=== PATIENT | female | born 1985 | race Caucasian/White ===

== ENCOUNTER 2023-03-09 07:02 | Day surgery (SDC) | payer OTHER ==
[2023-03-07 17:15] VITALS: BMI 31.1
[2023-03-07 17:42] LABS: Hematocrit 38.1 % (34.9-44.5); Hemoglobin 12.7 g/dL (12.0-15.5); Mean Corpuscular HGB CONC 33.3 g/dL (32.0-36.0); Mean Corpuscular Hemoglobin 30.6 pg (27.0-33.0); Mean Corpuscular Volume 91.8 fl (81.6-98.3); Platelet Count 233 10x3/uL (150-450); RBC Distribution Width 12.2 % (11.5-14.5); Red Blood Cell (RBC) Count 4.15 10x6/uL (3.90-5.03)
[2023-03-07 18:00] LABS: BHCG - Serum Negative (NEGATIVE); Pregs Control Background? CLEAR/WHITE (CLR/WHITE); Pregs Control Bar Appear? YES (CONTROL BAR)
[2023-03-09] MEDS ORDERED: CeleCOXIB 100 MG CAP ONE (07:48)
[2023-03-09] MEDS ORDERED: Famotidine/PF 20 mg/2ml Vial ONE (07:48)
[2023-03-09] MEDS ORDERED: Gabapentin 300 MG CAP ONE (07:48)
[2023-03-09] MEDS ORDERED: Bupivacaine PF 0.5% 30 ML VIAL ONE (08:52)
[2023-03-09] MEDS ORDERED: EPINEPHrine 1 MG/ML AMP ONE (08:52)
[2023-03-09] MEDS ORDERED: Fentanyl 250 MCG/5 ML VIAL ONE (09:10)
[2023-03-09] MEDS ORDERED: Ketorolac Tromethamine 30 MG/ML VIAL ONE (09:10)
[2023-03-09] MEDS ORDERED: metroNIDAZOLE 500 MG/100 ML BAG ONE (09:10)
[2023-03-09] MEDS ORDERED: Midazolam HCl 2 mg/2 ml Vial ONE (09:10)
[2023-03-09] MEDS ORDERED: PROPOFOL 20 ML ONE (09:10)
[2023-03-09] MEDS ORDERED: Glycopyrrolate 0.2 MG/ML 5 ML SYRINGE ONE (09:10)
[2023-03-09] MEDS ORDERED: CEFAZOLIN 2 GM VIAL ONE (09:10)
[2023-03-09] MEDS ORDERED: Ondansetron PF 4 MG/2 ML Vial ONE ×2 (09:10→12:28)
[2023-03-09] MEDS ORDERED: Dexamethasone 20 MG/5 ML VIAL ONE (09:10)
[2023-03-09] MEDS ORDERED: fentaNYL 50 mcg/mL 1 mL Vial ONE (11:31)
[2023-03-09] MEDS ORDERED: oxyCODONE 5 MG TAB ONE (13:29)
[2023-03-09] MEDS ORDERED: Metoclopramide HCl 10 MG/2 ML VIAL ONE (14:14)
== END 2023-03-09 15:05 | disposition home or self-care (01) ==
LOC: CSHSDC 07:02
PROVIDERS: ATTEND Obstetrics & Gynecology
PROC: 0UT94ZZ Resection of Uterus, Percutaneous Endoscopic Approach (ICD-10-PCS; principal; 2023-03-09)
PROC: 0UB74ZZ Excision of Bilateral Fallopian Tubes, Percutaneous Endoscopic Approach (ICD-10-PCS; principal; 2023-03-09)
DX: N94.89 Other specified conditions associated with female genital organs and menstrual cycle (principal); R10.2 Pelvic and perineal pain; G89.29 Other chronic pain; K21.9 Gastro-esophageal reflux disease without esophagitis; Z79.899 Other long term (current) drug therapy; Z88.6 Allergy status to analgesic agent
CPT/HCPCS: 84703; 85027; 86850; 86900; 86901; 88307; C9250; J0171; J1100; J1885; J2250; J2405; J2704; J2765; J3010; S0020; S0028

== ENCOUNTER 2023-03-16 14:21 | Observation (INO) | payer OTHER ==
[~2023-03-16 14:21] MED LIST: Iopamidol 300 61% 100 ML VIAL FS ONE
[2023-03-16 14:34] VITALS: BMI 33.0
[2023-03-16] MEDS ORDERED: HYDROcodone/Acetaminophen 5/325 mg Tablet PO PRN ×4 (14:35→14:37)
[2023-03-16] MEDS ORDERED: Bisacodyl 5 MG TAB PO PRN (14:35)
[2023-03-16] MEDS ORDERED: Ondansetron ODT 4 MG TAB PO PRN (14:35)
[2023-03-16] MEDS ORDERED: Zolpidem Tartrate 5 MG TAB PO PRN ×2 (14:35→14:37)
[2023-03-16] MEDS ORDERED: Piperacillin/Tazobactam 3.375 GM in Sodium Chloride 0.9% 100 ML IVPB SCH ×2 (14:45→18:00)
[2023-03-16] MEDS: Meperidine HCl/PF 25 MG/ML VIAL SLOW IVP PRN ×2 (15:26→19:02)
[2023-03-16 15:31] LABS: #Eosinphils 0.1 10x3/uL (0.0-0.5); #Monocytes 0.5 10x3/uL (0.0-1.1); #Neutrophils 6.4 10x3/uL (1.5-8.4); %Basophils 0.2 % (0.0-2.0); %Eosinophils 0.6 % (0.0-6.0); %Lymphocytes 17.5 % (18.0-47.0); %Monocytes 5.4 % (0.0-10.0); %Neutrophils 75.9 % (40.0-75.0); Hematocrit 44.2 % (34.9-44.5); Hemoglobin 15.2 g/dL (12.0-15.5); Mean Corpuscular HGB CONC 34.4 g/dL (32.0-36.0); Mean Corpuscular Hemoglobin 30.7 pg (27.0-33.0); Mean Corpuscular Volume 89.3 fl (81.6-98.3); Mean Platelet Volume 9.6 fl (7.4-10.4); Platelet Count 214 10x3/uL (150-450); RBC Distribution Width 12.1 % (11.5-14.5); Red Blood Cell (RBC) Count 4.95 10x6/uL (3.90-5.03); White Blood Cell (WBC) Count 8.5 10x3/uL (3.5-10.5)
[2023-03-16] MEDS: Sodium Chloride 0.9% 1,000 ML IV SCH (15:35)
[2023-03-16 15:53] LABS: Bilirubin Neg (Negative); Blood, Urine Negative (Negative); Clarity Clear (Clear); Glucose, Urine (Dipstick) Normal (Negative); Ketone, Urine 15 mg/dL (Negative); Leukocyte Negative (Negative); Nitrite Negative (Negative); Protein, Urine (Dipstick) Negative (Neg-Trace); Urobilinogen Normal mg/dL (Less than 2)
[2023-03-16] MEDS: Ondansetron PF 4 MG/2 ML Vial IVP PRN (15:55)
[2023-03-16 16:49] LABS: ALT (SGPT) 20 U/L (8-55); AST (SGOT) 40 U/L (5-34); Albumin 4.9 g/dL (3.5-5.0); Alkaline Phosphatase 86 U/L (40-110); Anion Gap 18 mmol/L (10-20); BUN (Urea Nitrogen) 11 mg/dL (7.0-18.7); Bilirubin, Total 0.7 mg/dL (0.2-1.2); Calc. Creatinine Clearance 135 mL/min (70-130); Calcium 9.4 mg/dL (7.8-10.44); Carbon Dioxide 21 mmol/L (22-29); Chloride 100 mmol/L (98-107); Estimated GFR 110; Globulin 3.9 g/dL (2.4-3.5); Glucose 82 mg/dL (70-105); Potassium 5.2 mmol/L (3.5-5.1); Protein, Total 8.8 g/dL (6.0-8.3); Sodium 134 mmol/L (136-145)
[2023-03-16 17:08] LABS: RBC/HPF 0-3 HPF (0-3); WBC/HPF 0-3 HPF (0-3)
[2023-03-16 17:09] LABS: Bacteria/HPF 1+ HPF (None Seen); Mucous/LPF 1+ LPF (<2+)
[2023-03-16] MEDS: Piperacillin/Tazobactam 3.375 GM in Sodium Chloride 0.9% 100 ML IVPB SCH (19:02)
[2023-03-16] MEDS ORDERED: traMADol HCl 50 MG TAB PO PRN ×2 (19:31→19:32)
[2023-03-16] MEDS ORDERED: Promethazine HCl 25 MG in Sodium Chloride 0.9% 50 ML IVPB PRN (19:36)
[2023-03-16] MEDS: Ketorolac Tromethamine 30 MG/ML VIAL IVP SCH (20:11)
[2023-03-16] MEDS ORDERED: metroNIDAZOLE 500 MG in Premix Bag 1 BAG IVPB SCH (22:00)
[2023-03-16] MEDS: metroNIDAZOLE 500 MG in Premix Bag 1 BAG IVPB SCH (22:27)
[2023-03-17] MEDS: Ketorolac Tromethamine 30 MG/ML VIAL IVP SCH ×3 (02:44→14:39)
[2023-03-17] MEDS: Piperacillin/Tazobactam 3.375 GM in Sodium Chloride 0.9% 100 ML IVPB SCH ×2 (02:44→10:52)
[2023-03-17] MEDS: Sodium Chloride 0.9% 1,000 ML IV SCH ×2 (02:51→10:36)
[2023-03-17] MEDS: metroNIDAZOLE 500 MG in Premix Bag 1 BAG IVPB SCH ×2 (06:23→13:48)
[2023-03-17] MEDS: Ondansetron PF 4 MG/2 ML Vial IVP PRN (08:40)
[2023-03-17 11:22] VITALS: BP 97/61; TEMP 98.4
== END 2023-03-17 15:28 | disposition home or self-care (01) ==
LOC: CSHPED 14:21 → INTOOBSV 14:21
PROVIDERS: ADMIT Obstetrics & Gynecology; ATTEND Obstetrics & Gynecology
DX: N99.89 Other postprocedural complications and disorders of genitourinary system (principal); N73.2 Unspecified parametritis and pelvic cellulitis; Z88.6 Allergy status to analgesic agent; Z90.710 Acquired absence of both cervix and uterus
CPT/HCPCS: 74177; 80053; 81001; 85025; 87086; 96374; 96375; G0378; J1885; J2175; J2405; J2543; J2550; J3490; J7050; Q9967